=== PATIENT | female | born 1990 | race Caucasian/White ===

== ENCOUNTER → 2018-07-05 11:33 | Outpatient (CLI) | payer OTHER, MEDICAID, SELFPAY ==
[2018-07-05 13:35] LABS: Appearance Urine UA CLEAR; Bilirubin Urine UA NEGATIVE (NEGATIVE); Color Urine UA YELLOW; Glucose Urine UA NEGATIVE (Normal); Ketones Urine UA NEGATIVE (NEGATIVE); Leukocyte Esterase Urine UA 2+ (NEGATIVE); Nitrite Urine UA Negative (Negative); Occult Blood Urine UA NEGATIVE (Negative); Protein Urine UA NEGATIVE (Negative); Specific Gravity Urine UA 1.025 (1.000-1.035); Urobilinogen Urine UA 0.2 E.U./dL (0.2)
[2018-07-05 13:36] LABS: RBC Urine None Seen (0-5/HPF)
[2018-07-05 14:01] LABS: Add Manual Diff / Slide Review NO; Bacteria Urine Moderate (10-30); Basophils Percent Auto 0.6 % (0-2); Eosinophils Percent Auto 3.3 % (2-4); Hematocrit 32.9 % (36-46); Hemoglobin 11.2 g/dL (12.0-16.0); Mean Corpuscular HGB Conc 34.1 % (30-36); Mean Corpuscular Hemoglobin 31.7 PG (26-34); Mean Corpuscular Volume 92.9 fL (80-100); Monocytes Percent Auto 5.8 % (3-14); Neutrophils Absolute Auto 6100 /uL (3000-5900); Neutrophils Percent Auto 70.3 % (50-75); Platelet Count 371 X10^3/uL (150-400); Red Blood Cell Count 3.54 X10^6/uL (4.0-5.2); Red Cell Distribution Width 14.3 % (11.6-14.8); Squamous Epithelial Cell Urine 10-30 /HPF; WBC Urine 5-10/HPF (0-5/HPF); White Blood Cell Count 8.6 X10^3/uL (4.5-11.0)
[2018-07-05 14:02] LABS: Urine Comments CULTURE ORDERED
[2018-07-05 14:09] LABS: GTT (PREG) 1 Hour PP 50gm Dose 120 mg/dL (76-139)
[2018-07-05 18:43] LABS: Hepatitis B Surface Antigen NEGATIVE s/c (NEGATIVE); Rubella Antibody IgG 4.5 IU/mL (>15)
[2018-07-05 18:58] LABS: HIV 1 and 2 Antibody NEGATIVE (NEGATIVE); Hep C Virus Ab w/Reflex Quant NEGATIVE s/c (NEGATIVE)
[2018-07-09 17:32] LABS: HSV 2 IGG AB < 0.90 index (< 0.90); HSV1IGG < 0.90 index (< 0.90)
[2018-07-11 20:58] LABS: Rapid Plasma Reagin NON-REACTIVE
== END ==
PROVIDERS: Visit Provider Family Medicine
DX: Z34.03 Encounter for supervision of normal first pregnancy, third trimester (principal); Z3A.32 32 weeks gestation of pregnancy
CPT/HCPCS: 36415; 80055; 81003; 81015; 82950; 86695; 86696; 86703; 86787; 86803; 86850; 86900; 86901; 87086

== ENCOUNTER → 2018-07-09 11:02 | Outpatient (CLI) | payer OTHER, MEDICAID, SELFPAY ==
--- NOTE | 2018-07-09 11:05 | DI.US.S_ITS ---
PROCEDURE: US OB >= 14 WEEKS FETUS INDICATIONS: ANATOMY, LATE TO CARE OUTSIDE/PRIOR DATING DATA: Last menstrual period (LMP): 11/19/17. LMP-based estimated date of delivery (GEOVANNY): 08/26/18. First dating scan (date and location): 07/09/18. Estimated date of delivery (GEOVANNY) from first dating scan: 09/03/18. TECHNIQUE: Real-time scanning was performed of the fetus, with image documentation and biometric measurements. Endovaginal scanning: No COMPARISON: [employer] [facility], , OB >= 14 WEEKS FETUS, 07/05/2018, 11:04. FINDINGS: General: A single living intrauterine gestation is present. Presentation: Vertex. Placenta: Placental position is anterior, without previa. Amniotic fluid index: 14.3 cm, normal range is 5-24 cm. heart rate: 126 beats per minute. Maternal cervical canal: 3.3 cm long. biometrics: Biparietal diameter: 31 weeks Head circumference: 32 weeks 1 day Abdominal circumference: 31 weeks 6 days Femur length: 32 weeks Estimated gestational age from initial scan: not applicable. Composite gestational age from present scan: 32 weeks Estimated weight and percentile: 1899 g; 60% Measurement variability for biometric dating: +/- 7 days from 14 weeks to 15 weeks 6 days gestation, +/- 10 days from 16 weeks to 21 weeks 6 days gestation, +/- 2 weeks from 22 weeks to 27 weeks 6 days gestation, +/- 3 weeks for 28 weeks gestation or later. weight reference: 4500 g or EFW >90/95% is considered macrosomia or large for gestational age. EFW <10% is small for gestational age. EFW 5% or less is considered intra-uterine growth restriction. Anatomic survey: Neuro: Ventricles are non-dilated at less than 10 mm. Cisterna magna is normal at 3-11 mm. Cerebellum is normal in size and morphology. Nuchal skin fold: Normal at less than 6 mm between 14-21 weeks gestational age. Face: Nose and lips, facial profile are normal. Spine: No evidence for spina bifida. Heart: 4-chambered heart is present, with normal ventricular outflow tracts. Diaphragm: Diaphragm is intact. Stomach: Left-sided stomach is present. Kidneys: No hydronephrosis. Normal is less than 5 mm in 2nd trimester, less than 7 mm in 3rd trimester. Cord: Not well-seen. Bladder: Normal in size. Extremities: All 4 extremities identified. IMPRESSION: 1. Single living IUP present with composite gestational age of 32 weeks. 2. Cord insertion site not well visualized otherwise normal anatomy. Dictated by: Maximino ROSA Interpreted: Miguelina Alfonso MD on 07/09/2018 at 13:05 Approved by: Bg Mendoza M.D. on 07/11/2018 at 9:48
== END ==
PROVIDERS: Visit Provider Family Medicine
DX: Z36.89 Encounter for other specified antenatal screening (principal); Z34.03 Encounter for supervision of normal first pregnancy, third trimester; Z3A.32 32 weeks gestation of pregnancy
CPT/HCPCS: 76811

== ENCOUNTER → 2018-08-06 13:42 | Outpatient (CLI) | payer OTHER, MEDICAID, SELFPAY ==
[2018-08-07 13:59] LABS: Strep Grp B PCR NEG for Grp B Strep
== END ==
PROVIDERS: Visit Provider Family Medicine
DX: Z34.03 Encounter for supervision of normal first pregnancy, third trimester (principal)
CPT/HCPCS: 87653

== ENCOUNTER 2018-08-21 03:55 | Inpatient (IN) | payer OTHER, MEDICAID, SELFPAY ==
[2018-08-21] MEDS: LACTATED RINGERS 1,000 ML 100 ML IV ×3 (04:11→08:52)
[2018-08-21 04:59] LABS: Add Manual Diff / Slide Review NO; Basophils Percent Auto 0.5 % (0-2); Hematocrit 36.7 % (36-46); Hemoglobin 12.6 g/dL (12.0-16.0); Lymphocytes Percent Auto 10.9 % (25-40); Mean Corpuscular HGB Conc 34.3 % (30-36); Mean Corpuscular Hemoglobin 31.7 PG (26-34); Mean Corpuscular Volume 92.4 fL (80-100); Monocytes Percent Auto 5.3 % (3-14); Neutrophils Absolute Auto 13600 /uL (3000-5900); Neutrophils Percent Auto 82.3 % (50-75); Platelet Count 205 X10^3/uL (150-400); Red Blood Cell Count 3.98 X10^6/uL (4.0-5.2); Red Cell Distribution Width 13.5 % (11.6-14.8); White Blood Cell Count 16.5 X10^3/uL (4.5-11.0)
[2018-08-21 06:08] VITALS: BP 134/90
--- NOTE | 2018-08-21 08:16 | P.HPOB_ITS ---
OB HPI Date/Time Date of admission: 08/21/18 Date Patient Seen: 08/21/18 Time Patient Seen: 08:00 History of Present Condition Chief complaint: Evaluation of labor : 1 Para: 0 Estimated Date of Delivery: 09/03/18 Estimated Gestational Age (weeks): 38w0d Narrative: Cathy Mathews is a 28 year old at 38 weeks gestation who presented with SROM. The pt reports that at 2am she had gross rupture of membranes at home. Shortly after, she started having regular painful contractions. Fluid appeared clear. No vaginal bleeding. Feeling baby move regularly. History of Present care: limited care and initiated at week # (32) Dating criteria: based on 3rd trimester US only Ultrasounds: normal mid trimester US Obstetrical complications: none Medical complications: none Preadmission Labs Blood type: A (+) positive -: Antibody screen: negative, GBS status: negative, HBsAG: negative, HIV: negative, HSV 1: negative, HSV 2: negative and RPR/VDLR: negative -: Rubella: not immune and Varicella: immune HCT: 32.9 HCAB: negative Urine: Lactobacillus 1 hr GTT: 120 Evaluation Evaluation Baseline heart rate: 130 Variability: Moderate (11-25) monitor accelerations: Present monitor decelerations: Absent Contraction Frequency (minutes): 2 Uterine Contraction Intensity: Strong/Firm Category of Tracing: I Cervical dilation (cm): 9 Cervical effacement (%): 100 station: +1 Laboratory results: Laboratory Tests 08/21/18 08/21/18 04:44 04:44 WBC 16.5 H RBC 3.98 L Hgb 12.6 Hct 36.7 MCV 92.4 MCH 31.7 MCHC 34.3 RDW 13.5 Plt Count 205 Neut % (Auto) 82.3 H Lymph % (Auto) 10.9 L [place] % (Auto) 5.3 Eos % (Auto) 1.0 L Baso % (Auto) 0.5 Neut # (Auto) 39908 H Blood Type A Positive Antibody Screen Negative Meds Home Medications Medication Instructions Recorded Confirmed Type No Known Home Medications 08/21/18 08/21/18 History Allergies Allergy/AdvReac Type Severity Reaction Status Date / Time peanut Allergy Severe Anaphylaxis Verified 08/21/18 05:03 Exam Vital Signs (past 8 hours): - 08/21/18 06:08 Blood Pressure 134/90 Narrative Exam Narrative: Gen: NAD, laying comfortably in bed, epidural in place, appears well CV: RRR, no murmurs Resp: clear to auscultation bilaterally Abd: soft, gravid Ext: no edema Objective Labs Result Diagrams: 08/21/18 04:44 Labs: Laboratory Results - last 24 hr 08/21/18 08/21/18 04:44 04:44 WBC 16.5 H RBC 3.98 L Hgb 12.6 Hct 36.7 MCV 92.4 MCH 31.7 MCHC 34.3 RDW 13.5 Plt Count 205 Neut % (Auto) 82.3 H Lymph % (Auto) 10.9 L [place] % (Auto) 5.3 Eos % (Auto) 1.0 L Baso % (Auto) 0.5 Neut # (Auto) 06975 H Blood Type A Positive Antibody Screen Negative Assessment and Plan (1) 38 weeks gestation of : Current visit: Yes Status: Acute Plan: Plan: 28yo at 38w0d gestation who presented with SROM, now with rapid progression to 9cm. GBS negative, Rh positive. - Expectant management, anticipate - FHT reassuring - GBS negative, no prophylaxis indicated - Epidural for pain control
--- NOTE | 2018-08-21 11:27 | PM.OBPRVD ---
Delivery date: 08/21/18 Intrapartal events: None Induction method: none Delivery monitor: external FHT Route of delivery: Laceration description: None Anesthesia type: Epidural Complications: None Narrative: PROCEDURE: at 38w0d presented with SROM in active labor and was admitted to Labor and Delivery. The patient progressed through the 1st stage over 7 hours. Pain was controlled with an epidural. The patient progressed through the 2nd stage over 1 hour and delivered a viable female infant with APGARs []/[] at 10:51 via . The perineum and vagina were inspected with abrasions near the urethra that were hemostatic and did not require repair. PREPROCEDURE DIAGNOSIS: Intrauterine at 38w0d GBS negative RH positive POSTPROCEDURE DIAGNOSIS: Intrauterine at 38w0d, delivered Same as preprocedure ROM APPEARANCE: Clear BABY A OUTCOME: Viable BABY A WEIGHT: 6lb2oz BABY A POSITION: OA BABY A NUCHAL CORD: None PLACENTA DELIVERY TIME: 10:55 PLACENTA APPEARANCE: Intact EBL: 400mL Baby 1: Infant gender: Female Presentation: vertex Placenta delivery description: Spontaneous cord vessel description: 3 Vessels score (1 min): 9 score (5 min): 9 Plan for aftercare: Normal care support
[2018-08-21] MEDS: IBUPROFEN 600 MG TABLET PO ×2 (14:41→20:37)
[2018-08-22 06:42] LABS: Hematocrit 24.2 % (36-46); Hemoglobin 8.3 g/dL (12.0-16.0)
--- NOTE | 2018-08-22 08:06 | PM.OBPN.1 ---
Subjective - OB baby status: doing well feeding status: exclusively breast feeding Narrative: The pt reports overall feeling well this morning. Her lochia is decreasing appropriately, and is now approximately at the level of the heavy period. Her pain is well controlled. The patient has been having great difficulty breast feeding. Her baby does not like to open her mouth very wide. She is currently using a nipple shield. Date Patient Seen: 08/22/18 Time Patient Seen: 08:00 Exam Narrative Exam Narrative: General: No acute distress, sitting comfortably in bed, appears well CV: Regular rate and rhythm, no murmurs Respiratory: Clear to auscultation bilaterally Abdomen: Full scope of appropriately tender, fundus firm below the umbilicus, nondistended Extremities: No edema Objective Labs Result Diagrams: 08/22/18 06:20 Labs: Laboratory Results - last 24 hr 08/22/18 06:20 Hgb 8.3 L Hct 24.2 L Assessment & Plan (1) 38 weeks gestation of : Status: Acute Current Visit: Yes (2) (spontaneous vaginal delivery): Status: Acute Current Visit: Yes Plan day: 1 Comments: 28-year-old day 1. Status post spontaneous vaginal delivery without complications. Patient is doing well - normal care - breast-feeding support. Will have visit today. Time Spent With Patient Total time spent is greater than 50% in coordination of care (as documented) at patient's floor/unit and/or counseling patient: 25 - 35 minutes
[2018-08-22 12:59] LABS: Urine Amphetamines Negative (Negative); Urine Barbiturates Negative (Negative); Urine Benzodiazepines Negative (Negative); Urine Cocaine Negative (Negative); Urine MDMA Negative (Negative); Urine Methadone Negative (Negative); Urine Methamphetamines Negative (Negative); Urine Morphine/Opi cutoff 2000 Negative (Negative); Urine Oxycodone Negative (Negative); Urine Phencyclidine Negative (Negative); Urine Tetrahydrocannabinol Negative (Negative); Urine Tricyclic Antidepressant Negative (Negative)
[2018-08-22] MEDS: IBUPROFEN 600 MG TABLET PO (20:00)
[2018-08-22] MEDS: PRENATAL VIT,CALC/IRON/FOLIC 1 TABLET 1 TAB PO (20:00)
[2018-08-22] MEDS: DOCUSATE 250 MG CAPSULE PO (20:00)
--- NOTE | 2018-08-23 08:42 | PM.OBDS.1 ---
Discharge Providers Date of admission: 08/21/18 03:55 Consults: 08/21/18 11:15 Consult to Hoist Worker Routine Comment: Discharge provider: Phyllis Blake DO Discharge Date: 08/23/18 Summary Date Patient Seen: 08/23/18 Time Patient Seen: 07:45 Hospital Course: 28-year-old G1 now P1 status post uncomplicated vaginal delivery on 08/21/18. course complicated by anemia treated with iron, otherwise uncomplicated. Patient reports that bleeding is similar to a period. She has been ambulating, voiding and eating without difficulty. has been a struggle despite support and infant has been supplemented with formula. Pain well controlled with ibuprofen. No concerns from patient. Exam Temperature 98.5? blood pressure 104/72 heart rate 94 respirations 15 General: Awake and alert, no acute distress. HEENT: NCAT, EOMI, moist oral mucosa CV: Regular rate and rhythm, no murmurs, rubs or gallops Lungs: CTAB, no wheezes, rales, or rhonchi Abdomen: Soft, nontender; bowel tones active; uterus firm 1 cm below umbilicus Extremities: Warm, no edema, 2+ pedal pulses bilaterally Counseled patient to call for fevers, severe pain or bleeding through more than a pad an hour. She will follow-up with Dr. Hurd in 6 weeks. Discharge Diagnosis (1) 38 weeks gestation of : Status: Acute (2) (spontaneous vaginal delivery): Status: Acute Status at Discharge Functional status at discharge: independent ambulation Overall status at discharge: patient is back to baseline Time Spent with Patient Total time spent providing and/or coordinating discharge services: Less than 30 minutes Objective Labs Result Diagrams: 08/22/18 06:20 Labs: Laboratory Results - last 24 hr 08/21/18 08:00 Urine Opiates Screen Negative Ur Oxycodone Screen Negative Urine Methadone Screen Negative Ur Barbiturates Screen Negative U Tricyclic Antidepress Negative Ur Phencyclidine Scrn Negative Ur Amphetamines Screen Negative U Methamphetamines Scrn Negative Ur MDMA Scrn (Ecstasy) Negative U Benzodiazepines Scrn Negative Urine Cocaine Screen Negative U Marijuana (THC) Screen Negative Discharge Plan Discharge Plan Patient Disposition: Home Discharge Med Rec/Prescriptions Prescriptions: New ferrous sulfate 325 mg (65 mg iron) Tablet 325 mg PO BIDWM Qty: 60 RF: 0 ibuprofen 600 mg Tablet 600 mg PO Q6HR PRN (Reason: Pain, Mild (1-3)) Qty: 30 RF: 0 docusate sodium 250 mg Capsule 250 mg PO DAILY Qty: 30 RF: 0 No Action No Known Home Medications RF: 0 Follow up/Referrals: Cami Hurd MD [Physician] - 6 Weeks (Follow up with Dr. Hurd on SundayOctober 01 at 2:00pm, check in at 1:45 pm. Call if you need to reschedule .) Visit Report/Discharge Packet Stand Alone Forms: Discharge: Care Visit Report Forms: Stroke Signs & Symptoms Discharge Data Attending Provider: Cami Hurd Admit Date/Time: 08/21/18 03:55
[2018-08-23] MEDS: DOCUSATE 250 MG CAPSULE PO (09:21)
[2018-08-23] MEDS: PRENATAL VIT,CALC/IRON/FOLIC 1 TABLET 1 TAB PO (09:21)
[2018-08-23] MEDS: FERROUS SULFATE 325 MG TABLET PO (09:21)
[2018-08-23 11:29] VITALS: BP 104/72; PULSE 94; RESP 15; TEMP 36.9
[2018-08-23 13:08] VITALS: BP 104/72; PULSE 94; RESP 15; TEMP 36.9
[2018-08-23] MEDS: MEASLES,MUMPS,RUBELLA VACC/PF 0.5 ML VIAL SUBCUT (13:39)
== END 2018-08-23 15:31 | disposition home or self-care (01) | DRG 560 ==
PROVIDERS: Admitting Provider Family Medicine; Visit Provider Family Medicine
DX: O80 Encounter for full-term uncomplicated delivery (principal); Z37.0 Single live birth; Z3A.38 38 weeks gestation of pregnancy; D62 Acute posthemorrhagic anemia
CPT/HCPCS: 01967; 36415; 59050; 59409; 80305; 85014; 85018; 85025; 86850; 86900; 86901; G0379; J3010